=== PATIENT | male | born 1960 | race Caucasian/White ===

== ENCOUNTER → 2017-08-10 | Outpatient (CLI) | payer BC ==
[~2017-08-10] MED LIST: ASPEC325 PO; CLB200 PO; LEVO125T72 PO; OXYC-609 PO; OXYSR10 PO
[2017-08-10 13:19] LABS: BASO % 0.2 %; BASO ABS # 0.02 K/uL (0-0.2); EOS % 0.7 %; EOS ABS # 0.09 K/uL (0-0.5); HEMOGLOBIN 16.6 g/dL (14.0-18.0); IG# 0.03 K/uL (0.00-0.02); LYMPH % 18.2 %; LYMPH ABS # 2.21 K/uL (1.2-3.4); MEAN CELL VOLUME 88.6 fL (80-100); MEAN CORPUSCULAR HEMOGLOBIN 30.6 pg (25-34); MEAN CORPUSCULAR HGB CONC 34.6 g/dl (32-36); MEAN PLATELET VOLUME 9.2 fL (7.4-10.4); MONO % 8.2 %; NEUT % 72.5 %; NEUT ABS # 8.82 K/uL (1.4-6.5); PLATELET COUNT 398 K/uL (130-400); RED CELL DISTRIBUTION WIDTH CV 12.9 % (11.5-14.5); RED CELL DISTRIBUTION WIDTH SD 41.8 fL (36.4-46.3); WHITE BLOOD COUNT 12.17 K/uL (4.8-10.8)
[2017-08-10 13:50] LABS: ALBUMIN 3.8 gm/dl (3.4-5.0); ALT/SGPT 38 U/L (12-78); BLOOD UREA NITROGEN 17 mg/dl (7-18); CALCIUM 9.3 mg/dl (8.5-10.1); CARBON DIOXIDE 27 mmol/L (21-32); CHOLESTEROL 208 mg/dl (0-200); CREATININE 0.92 mg/dl (0.60-1.40); GLUCOSE 96 mg/dl (70-99); POTASSIUM 3.6 mmol/L (3.5-5.1); SODIUM 136 mmol/L (136-145)
[2017-08-10 14:00] LABS: ALKALINE PHOSPHATASE 96 U/L (45-117); AST/SGOT 15 U/L (15-37); LDL CHOLESTEROL CALCULATED 139 mg/dl; TOTAL PROTEIN 7.1 gm/dl (6.4-8.2)
== END | disposition home or self-care (01) ==
LOC: C.LAB1850 12:14
PROVIDERS: ATTEND Nurse Practitioner Family
DX: I10 Essential (primary) hypertension (principal); E89.0 Postprocedural hypothyroidism; E78.5 Hyperlipidemia, unspecified

== ENCOUNTER 2019-05-02 11:13 | Inpatient (IN) ==
[2019-05-02] MEDS ORDERED: ACETAMINOPHEN 1,000 MG/100 ML VIAL IV STA (11:42)
[2019-05-02 11:57] LABS: Basophils # (auto) 0.02 K/uL (0-0.2); Basophils % (auto) 0.2 %; Eosinophils # (auto) 0.14 K/uL (0-0.5); Eosinophils % (auto) 1.2 %; Hematocrit (blood only) 46.3 % (42-52); Hemoglobin 16.3 g/dL (14.0-18.0); Immature Granulocytes # (auto) 0.04 K/uL (0.00-0.02); Immature Granulocytes % (auto) 0.3 %; Lymphocytes # (auto) 1.75 K/uL (1.2-3.4); Lymphocytes % (auto) 14.5 %; Mean Corpuscular Hgb Conc 35.2 g/dL (32-36); Mean Platelet Volume 8.9 fL (7.4-10.4); Monocytes # (auto) 1.04 K/uL (0.11-0.59); Monocytes % (auto) 8.6 %; Neutrophils % (auto) 75.2 %; Platelet Count 343 K/uL (130-400); RDW Standard Deviation 43.3 fL (36.4-46.3); Red Blood Count 5.09 M/uL (4.7-6.1); White Blood Count 12.09 K/uL (4.8-10.8)
[2019-05-02 12:10] LABS: Partial Thromboplastin Time 25.9 Seconds (21.0-31.0); Prothrombin Time 10.1 Seconds (9.0-12.0)
[2019-05-02 12:11] LABS: Blood Urea Nitrogen 15 mg/dl (7-18); Calcium 9.5 mg/dl (8.5-10.1); Carbon Dioxide 26 mmol/L (21-32); Chloride 105 mmol/L (98-107); Creatinine Clr Calc Pharmacy 108.9 ml/min; Est GFR (African American) 105.8; Est GFR (Non-African American) 91.3; Glucose 94 mg/dl (70-99); Magnesium 2.1 mg/dl (1.8-2.4); Potassium 3.9 mmol/L (3.5-5.1); Sodium 137 mmol/L (136-145)
[2019-05-02 12:16] LABS: Alanine Aminotransferase 37 U/L (12-78); Albumin Globulin Ratio 1.2 (0.9-2); Alkaline Phosphatase 101 U/L (45-117); Aspartate Aminotransferase 21 U/L (15-37); Bilirubin,Total 0.5 mg/dl (0.2-1); Globulin 3.5 gm/dl (2.5-4.0); Total Protein 7.5 gm/dl (6.4-8.2); Troponin I < 0.015 ng/ml (0-0.045)
[2019-05-02] MEDS ORDERED: OPTIRAY 320 125ml IV PRN (12:33)
--- NOTE | 2019-05-02 12:38 | CT Scan Report ---
CT angio head wo/w CT DOSE: CLINICAL HISTORY: stroke symptoms , blurred vision. TECHNIQUE: Unenhanced images were acquired through the brain. CT angiography was then performed in a dynamic helical fashion during intravenous administration of 1 year 19 cc of Optiray 320. MIP images were acquired. A dose lowering technique was utilized adhering to the principles of ALARA. COMPARISON STUDY: None. FINDINGS: The noncontrast head CT reveals no intra or extra-axial mass lesions. There is no CT evidence of acut e cortical infarction. There is no midline shift. There is no acute hemorrhage. There is no hydroceph alus. Postcontrast images reveal no pathologically enhancing masses. CT angiographic images reveal no evidence of major intracranial branch occlusion. No aneurysms are vi sualized. The dural venous sinuses appear patent. IMPRESSION: Unremarkable CT angiography of the brain. Electronically signed by: Tee Preston M.D. 05/02/2019 12:37 PM
--- NOTE | 2019-05-02 12:39 | CT Scan Report ---
CT angio neck with con CLINICAL HISTORY: 58 years-old Male with stroke symptoms. Acute strokelike symptoms COMPARISON STUDY: CTA had of same day TECHNIQUE: Following the IV administration of 119 mL of Optiray 320, CT angiogram of the neck was per formed from the aortic arch to the skull base. Images are reviewed in the axial, sagittal, and cortes l planes. 3-D MIPS images are created and assessed. IV contrast was administered without complication . All measurements were calculated based on NASCET criteria. A dose lowering technique was utilized adhering to the principles of ALARA. CT DOSE: 1111.39 mGy.cm FINDINGS: Three-vessel morphology of the aortic arch. There is patency of the imaged bilateral subclavian arter ies. The bilateral common carotid arteries are widely patent. The study is mildly motion degraded. Mo derate mixed plaque of the bilateral carotid bulbs results in less than 50% luminal narrowing bilater ally. The imaged bilateral internal carotid arteries appear to be patent. Dominant right vertebral ar edel. Calcified plaque at the origin of the right vertebral artery results in less than 50% luminal n arrowing. Mixed plaque at the origin of the left vertebral artery causes approximately 50% stenosis. Diminutive basilar artery with suggestion of origin of the bilateral posterior cerebral arterie s. There is no aneurysm, dissection, high-grade stenosis or proximal branch occlusion identified. The lung apices appear to be clear. No pneumothorax or adenopathy. Nonspecific prominent submandibular l ymph nodes measure up to 8 mm on the left. Mildly prominent left supraclavicular lymph nodes measure up to 8 mm. Degenerative changes of the spine. IMPRESSION: 1. No aneurysm, dissection, high-grade stenosis or proximal branch occlusion. 2. Moderate mixed plaque of the bilateral carotid bulbs results in less than 50% stenosis bilaterally . 3. Nonspecific mildly prominent left submandibular and supraclavicular lymph nodes. The above report was generated using voice recognition software. It may contain grammatical, syntax o r spelling errors. Electronically signed by: Nico Kramer M.D. 05/02/2019 12:38 PM
[2019-05-02] MEDS ORDERED: ASPIRIN CHEW 324 MG PO STA (13:08)
--- NOTE | 2019-05-02 14:56 | History & Physical Report ---
Date of Service May 02, 2019 Assessment & Plan (1) Vision disturbance: Sexual male with hypertension and hyperlipidemia presenting with visual disturbance, photopsia in the right eye; specifically blurry vision, flashing lights and floaters. He reports a similar episode of visual disturbance approximately 1 year ago. Patient displays no other neurological deficits. CTA of the head and neck with no aneurysm, dissection or high-grade stenosis. Mixed plaque of the bilateral carotid bulbs resulting in less than 50% stenosis. Differential to include, not limited to ocular migraine, macular degeneration, vertebrobasilar insufficiency, retinal detachment or vitreous detachment. -Admit to medical floor with telemetry monitoring -We will obtain MRI of the brain to further assess for possible stroke -Echocardiogram -Check hemoglobin A1c and lipid panel in a.m. -Will hold Norvasc for now to allow for permissive hypertension -Initiate aspirin 81 mg p.o. daily and Lipitor 20 mg p.o. daily. If problem proves to be a primary Ophtho issue would discontinue these medications. -Neurology consultation per protocol. Assistance appreciated. -Ophthalmology consultation. Assistance appreciated Present on Admission?: Yes (2) Headache: Patient with very dull headache at this time. -Tylenol as needed Present on Admission?: Yes (3) Benign essential hypertension: Blood pressure mildly elevated 151/92. We will hold amlodipine for now to allow for permissive hypertension. Continue to monitor Present on Admission?: Yes (4) Hyperlipidemia: Presently not on any medication for cholesterol -Check lipid panel -Initiate Lipitor 20 mg p.o. daily Present on Admission?: Yes (5) Rosacea: Chronic. Stable. Continue doxycycline at home dose Present on Admission?: Yes (6) Leukocytosis: Patient with mild neutrophil predominant leukocytosis with WBC = 12.09. He had an elevated WBC count in July 2017 as well at 12.17. Incidental discovery of nonspecific prominent submandibular lymph nodes measuring up to 8 mm on the left as well as mildly prominent left supraclavicular lymph node measuring up to 8 mm. Patient denies fevers/chills/weight loss/sweats. Repeat CBC in a.m. -Consider peripheral blood smear -Outpatient follow-up FENHep-Lock. Electrolytes within normal limits. Heart healthy diet as tolerated Prophylaxispatient low risk for DVT. Prophylaxis not indicated Codefull per discussion with patient Dispositionadmit to medical floor telemetry monitoring History of Present Illness Chief Complaint: Visual disturbance Primary Care Provider: José Miguel Mclean III, ROCIO Richard Hyde is a pleasant 58-year-old male with history of hypertension, hyperlipidemia and prior thyroid cancer presenting with right eye visual disturbance. Patient reports approximately 1 year ago while [place] he experienced flashing lights in his right eye which lasted approximately 3 minutes. No neurologic deficits or headache at that time. Patient had a recurrence of the visual disturbance last week while at work when he developed flashing lights in his right eye, blurry vision, "wobbly vision" provoked with looking far right or far left and floaters. He reports that the flashing light was present even while closing his eyes. During this time he st ates that he felt "strange" and "foggy" like he just woke up. This episode lasted longer than the one a year ago and was followed by a dull headache. This morning when the patient woke up he had a dull headache and feeling of pressure in his head. He reports the same flashing light in his right eye, "wobbly" vision provoked with far rightward or leftward gaze and floaters. He denies loss of vision or amaurosis fugax. Denies focal numbness/tingling/weakness. Denies clumsiness of his hands or gait disturbance. Denies difficulty with chewing/swallowing or speaking. Denies pain in the eyes or pain with eye movement but reports that the back of his eyes feel tired. Denies changes in bowels or bladder specifically denies urinary retention, denies back pain or shooting pains. He does not frequently have headaches and has no personal history of migraine. Reports that his vision is overall intact but feels that he may need reading glasses at some point in the near future. Patient additionally denies fever/chills/weight loss/weight gain. Denies hearing loss/tinnitus/vertigo. Denies painful swallowing or difficulty swallowing/abdominal pain/nausea/vomiting/diarrhea/constipation. Denies chest pain/palpitations/shortness of breath/cough/wheeze. No additional complaints at this time. ER course: Aspirin 324 mg p.o. Allergies Allergy/AdvReac Type Severity Reaction Status Date / Time No Known Allergies Allergy Unverified 05/02/19 13:18 Home Medications Home Medications Medication Instructions Recorded Confirmed Type doxycycline hyclate 50 mg capsule 50 mg PO BID #180 cap 04/19/19 05/02/19 Rx amlodipine 5 mg PO QAM 05/02/19 05/02/19 History levothyroxine [Synthroid] 200 mcg PO QAM 05/02/19 05/02/19 History Past Med/Surg History Medical History Dyslipidemia Hypertension Rosacea Thyroid cancer Surgical History History of thyroidectomy History of tonsillectomy History of knee joint replacement Family History Father Cancer Smoker Social History Preferred Language: Setswana Communication Ability: Effective Installation Helper Required: No Beliefs That Will Affect Care: None Current Living Situation: Spouse current occupational status: employed Other Information That Helps Us Care for You: No Feels Safe at Home: Yes Safety Concerns: Feels Safe At This Time Smoking Status: Never smoker Hx Alcohol Use: Yes Alcohol type: beer Alcohol Intake Frequency: Weekly Alcohol Intake Frequency Comment: 4/week Hx Substance Use: No Dental Care, Regularly: Yes Seatbelt Use: sometimes Do you think of yourself as: straight/heterosexual Review of Systems Review of Systems: All systems reviewed & are unremarkable except as noted in HPI & below Physical Exam Physical Exam: General: patient resting comfortably, NAD, non-toxic in appearance, AA&O x 4 Skin: warm, dry, intact, no rashes or lesions HEENT: NC/AT, PERRL, EOMI, anicteric sclera, conjunctiva without injection, external ear normal to inspection and nontender, nares patent, moist mucus membranes, dentition intact, no oropharyngeal lesions, neck supple, trachea midline, no LAD, no thyromegaly, no JVD Heart: +S1/S2, regular, no m/r/g Lungs: equal air entry bilaterally, no rales/rhonchi/wheezes Abd: +BS, soft, NT/ND, no masses/organomegaly/ascites Ext: warm, 2+ pulses in UE/LE bilaterally, no clubbing/cyanosis or edema Neuro: Patient awake alert and oriented x4, speech fluent and appropriate, no facial droop, cranial nerves II through XII grossly intact. Evoked flashing light in the right peripheral visual field with far rightward gaze. No nystagmus. Sensation to light touch intact. Muscle strength 5 out of 5 in upper and lower extremities bilaterally. Coordination by [id number] and [id number] intact bilaterally. Gait normal. Results & Data Vital Signs (Past 12 Hours) Vital Signs Temp Pulse Pulse Resp BP BP Pulse Ox 05/02/19 12:01 63 13 97 05/02/19 12:00 68 16 130/88 97 05/02/19 11:42 71 77 16 144/94 H 144/94 H 97 05/02/19 11:40 74 18 05/02/19 11:23 36.5 C 82 20 124/75 98 Laboratory Results Lab Results 05/02/19 05/02/19 05/02/19 Range/Units 11:36 11:38 11:38 WBC 12.09 H (4.8-10.8) K/uL RBC 5.09 (4.7-6.1) M/uL Hgb 16.3 (14.0-18.0) g/dL Hct 46.3 (42-52) % MCV 91.0 (80-100) fL MCH 32.0 (25-34) pg MCHC 35.2 (32-36) g/dL RDW Std Deviation 43.3 (36.4-46.3) fL RDW Coeff of Bang 13.0 (11.5-14.5) % Plt Count 343 (130-400) K/uL MPV 8.9 (7.4-10.4) fL Immature Gran % (Auto) 0.3 % Neut % (Auto) 75.2 % Lymph % (Auto) 14.5 % [place] % (Auto) 8.6 % Eos % (Auto) 1.2 % Baso % (Auto) 0.2 % Immature Gran # (Auto) 0.04 H (0.00-0.02) K/uL Neut # (Auto) 9.10 H (1.4-6.5) K/uL Lymph # (Auto) 1.75 (1.2-3.4) K/uL [place] # (Auto) 1.04 H (0.11-0.59) K/uL Eos # (Auto) 0.14 (0-0.5) K/uL Baso # (Auto) 0.02 (0-0.2) K/uL PT 10.1 (9.0-12.0) Seconds INR 1.0 (0.9-1.1) APTT 25.9 (21.0-31.0) Seconds PTT Ratio 1.0 Sodium (136-145) mmol/L Potassium (3.5-5.1) mmol/L Chloride (98-107) mmol/L Carbon Dioxide (21-32) mmol/L Anion Gap (3-11) BUN (7-18) mg/dl Creatinine (0.6-1.4) mg/dl Est Cr Clr Drug Dosing ml/min Est GFR ( Amer) Est GFR (Non-Af Amer) BUN/Creatinine Ratio (10-20) Glucose (70-99) mg/dl POC Glucose 89 (70-99) Calcium (8.5-10.1) mg/dl Magnesium (1.8-2.4) mg/dl Total Bilirubin (0.2-1) mg/dl AST (15-37) U/L ALT (12-78) U/L Alkaline Phosphatase (45-117) U/L Troponin I (0-0.045) ng/ml Total Protein (6.4-8.2) gm/dl Albumin (3.4-5.0) gm/dl Globulin (2.5-4.0) gm/dl Albumin/Globulin Ratio (0.9-2) 05/02/19 Range/Units 11:38 WBC (4.8-10.8) K/uL RBC (4.7-6.1) M/uL Hgb (14.0-18.0) g/dL Hct (42-52) % MCV (80-100) fL MCH (25-34) pg MCHC (32-36) g/dL RDW Std Deviation (36.4-46.3) fL RDW Coeff of Bang (11.5-14.5) % Plt Count (130-400) K/uL MPV (7.4-10.4) fL Immature Gran % (Auto) % Neut % (Auto) % Lymph % (Auto) % [place] % (Auto) % Eos % (Auto) % Baso % (Auto) % Immature Gran # (Auto) (0.00-0.02) K/uL Neut # (Auto) (1.4-6.5) K/uL Lymph # (Auto) (1.2-3.4) K/uL [place] # (Auto) (0.11-0.59) K/uL Eos # (Auto) (0-0.5) K/uL Baso # (Auto) (0-0.2) K/uL PT (9.0-12.0) Seconds INR (0.9-1.1) APTT (21.0-31.0) Seconds PTT Ratio Sodium 137 (136-145) mmol/L Potassium 3.9 (3.5-5.1) mmol/L Chloride 105 (98-107) mmol/L Carbon Dioxide 26 (21-32) mmol/L Anion Gap 6.0 (3-11) BUN 15 (7-18) mg/dl Creatinine 0.91 (0.6-1.4) mg/dl Est Cr Clr Drug Dosing 108.9 ml/min Est GFR ( Amer) 105.8 Est GFR (Non-Af Amer) 91.3 BUN/Creatinine Ratio 17.0 (10-20) Glucose 94 (70-99) mg/dl POC Glucose (70-99) Calcium 9.5 (8.5-10.1) mg/dl Magnesium 2.1 (1.8-2.4) mg/dl Total Bilirubin 0.5 (0.2-1) mg/dl AST 21 (15-37) U/L ALT 37 (12-78) U/L Alkaline Phosphatase 101 (45-117) U/L Troponin I < 0.015 (0-0.045) ng/ml Total Protein 7.5 (6.4-8.2) gm/dl Albumin 4.0 (3.4-5.0) gm/dl Globulin 3.5 (2.5-4.0) gm/dl Albumin/Globulin Ratio 1.2 (0.9-2) Diagnostic Findings CT angio neck with con CLINICAL HISTORY: 58 years-old Male with stroke symptoms. Acute strokelike symptoms COMPARISON STUDY: CTA had of same day TECHNIQUE: Following the IV administration of 119 mL of Optiray 320, CT angiogram of the neck was performed from the aortic arch to the skull base. Images are reviewed in the axial, sagittal, and coronal planes. 3-D MIPS images are created and assessed. IV contrast was administered without complication. All measurements were calculated based on NASCET criteria. A dose lowering technique was utilized adhering to the principles of ALARA. CT DOSE: 1111.39 mGy.cm FINDINGS: Three-vessel morphology of the aortic arch. There is patency of the imaged bilateral subclavian arteries. The bilateral common carotid arteries are widely patent. The study is mildly motion degraded. Moderate mixed plaque of the bilateral carotid bulbs results in less than 50% luminal narrowing bilaterally. The imaged bilateral internal carotid arteries appear to be patent. Dominant right vertebral artery. Calcified plaque at the origin of the right vertebral artery results in less than 50% luminal narrowing. Mixed plaque at the origin of the left vertebral artery causes approximately 50% stenosis. Diminutive basilar artery with suggestion of origin of the bilateral posterior cerebral arteries. There is no aneurysm, dissection, high-grade stenosis or proximal branch occlusion identified. The lung apices appear to be clear. No pneumothorax or adenopathy. Nonspecific prominent submandibular lymph nodes measure up to 8 mm on the left. Mildly prominent left supraclavicular lymph nodes measure up to 8 mm. Degenerative changes of the spine. IMPRESSION: 1. No aneurysm, dissection, high-grade stenosis or proximal branch occlusion. 2. Moderate mixed plaque of the bilateral carotid bulbs results in less than 50% stenosis bilaterally. 3. Nonspecific mildly prominent left submandibular and supraclavicular lymph nodes. The above report was generated using voice recognition software. It may contain grammatical, syntax or spelling errors. Electronically signed by: Nico Kramer M.D. 05/02/2019 12:38 PM Dictated: 05/02/19 1234 Transcribed: 05/02/[address] angio head wo/w CT DOSE: CLINICAL HISTORY: stroke symptoms , blurred vision. TECHNIQUE: Unenhanced images were acquired through the brain. CT angiography was then performed in a dynamic helical fashion during intravenous administration of 1 year 19 cc of Optiray 320. MIP images were acquired. A dose lowering technique was utilized adhering to the principles of ALARA. COMPARISON STUDY: None. FINDINGS: The noncontrast head CT reveals no intra or extra-axial mass lesions. There is no CT evidence of acute cortical infarction. There is no midline shift. There is no acute hemorrhage. There is no hydrocephalus. Postcontrast images reveal no pathologically enhancing masses. CT angiographic images reveal no evidence of major intracranial branch occlusion. No aneurysms are visualized. The dural venous sinuses appear patent. IMPRESSION: Unremarkable CT angiography of the brain. Electronically signed by: Tee Preston M.D. 05/02/2019 12:37 PM Dictated: 05/02/19 1232 Transcribed: 05/02/19 1236 ECG Additional Comments: Normal study. No acute ischemic change Code Status & VTE Plan Code Status Full code VTE Prophylaxis Plan VTE Prophylaxis will be ordered: No Reason for no VTE drug order: Treatment not indicated Reason for no VTE mechanical prophylaxis: Treatment not indicated PG Care Time/CCT Total # of Minutes Spent Total Time Spent with Patient: Total time spent is greater than 50% in coordination of care (as documented) at patient's floor/unit and/or counseling patient: (1) Headache Headache chronicity pattern: unspecified pattern Headache type: unspecified Intractability: not intractable Qualified Code(s): R51 - Headache (2) Hyperlipidemia Hyperlipidemia type: unspecified Qualified Code(s): E78.5 - Hyperlipidemia, unspecified (3) Leukocytosis Leukocytosis type: unspecified Qualified Code(s): D72.829 - Elevated white blood cell count, unspecified
[2019-05-02] MEDS ORDERED: ACETAMINOPHEN 325 MG TAB PO PRN (15:40)
--- NOTE | 2019-05-02 16:42 | Neurology Consultation ---
Date of Consultation May 02, 2019 Assessment & Plan (1) Flashing lights: Richard Angel is a 58-year-old man with past medical history of hypertension, hyperlipidemia, rosacea and history of thyroid cancer status post resection who presents to [facility] after onset of right eye blurry vision and flashes of light associated with a dull headache. #Flashing lights with associated blurry vision and headache: Differential is concerning for possible retinal detachment versus tear, temporal arteritis, less likely migraine with visual aura as his headache history is not consistent with migraine nor is his current headache consistent with migraine. Positive symptoms with flashing lights if no other underlying retinal or optic nerve pathology could also be consistent with occipital lobe seizures. History does not sound consistent with a CRAO or BRAO. - MRI brain pending to rule out any occipital lobe stroke or compressive of lesion on the right optic nerve - needs urgent ophtho evaluation to rule out retinal detachment or tear as this requires urgent treatment - please send ESR/CRP to rule out temporal arteritis We will continue to follow patient closely. Please call with any questions. (2) Vision disturbance: (3) Headache: History of Present Illness Attending Physician: Lauren Ferreira DO Richard Angel is a 58-year-old man with past medical history of hypertension, hyperlipidemia, rosacea and history of thyroid cancer status post resection who presents to [facility] after onset of right eye blurry vision and flashes of light associated with a dull headache. He reports that he had similar symptoms one time last year while he was hunting. He reports acute onset of flashes and floaters predominantly in the right side of his vision. These resolved after several minutes and had no other associated symptoms of numbness, tingling, weakness that he was aware of. Last Wednesday, he reports again having several minutes of right-sided flashes in his vision associated with a brief. Of darkness like a curtain had pulled over the right upper portion of his vision. He did have a dull headache in his roman catholic and retro-orbital regions with no associated nausea, vomiting, photophobia or phonophobia that he noted. This resolved and he was in his normal state of health until yesterday when he started to feel a bit lethargic over the course of the day. He then also noticed the spots in his vision in the same curtain in the right upper outer portion of his visual field that seemed to last for a little bit longer but did resolve. After noticing the same symptoms of blurry vision, flashes of light and dull headache this morning, he presented to the emergency department. In the ED, he was found to be hypertensive with blood pressure 153/89. He was afebrile and the remainder of his vitals are unremarkable. His labs are notable for leukocytosis with a neutrophilic predominance. A1c and lipid panel are pending. He had a CTA of the head and neck that showed mild stenosis of bilateral internal carotid arteries with no high-grade stenosis, aneurysm or large vessel occlusion noted. MRI brain is pending. Ophthalmological evaluation is also pending. His stroke scale on examination was 0. He reports that the headache is 2 out of 10 in severity, dull in character with no associated symptoms. He gets rare headaches that are similar in character couple times a year but never previously had any visual symptoms with his previous headaches. He does note some tenderness along his temples but denies jaw claudication or symptoms of PMR. Allergies Allergy/AdvReac Type Severity Reaction Status Date / Time No Known Allergies Allergy Unverified 05/02/19 13:18 Home Medications Home Medications Medication Instructions Recorded Confirmed Type doxycycline hyclate 50 mg capsule 50 mg PO BID #180 cap 04/19/19 05/02/19 Rx amlodipine 5 mg PO QAM 05/02/19 05/02/19 History levothyroxine [Synthroid] 200 mcg PO QAM 05/02/19 05/02/19 History Patient History Medical History Dyslipidemia Hypertension Rosacea Thyroid cancer Surgical History History of thyroidectomy History of tonsillectomy History of knee joint replacement Family History Father Cancer Smoker Social History Preferred Language: Hungarian Communication Ability: Effective Flag Signalman Required: No Beliefs That Will Affect Care: None Current Living Situation: Spouse current occupational status: employed Feels Safe at Home: Yes Smoking Status: Never smoker Hx Alcohol Use: Yes Alcohol type: beer Alcohol Intake Frequency: Weekly Alcohol Intake Frequency Comment: 4/week Hx Substance Use: No Dental Care, Regularly: Yes Seatbelt Use: sometimes Do you think of yourself as: straight/heterosexual Review of Systems Review of Systems: 14 point review of systems completed and negative except as in HPI. Physical Exam Physical Exam: General Exam: GEN: NAD, sitting in bed. HEENT: No conjunctival injection, no rhinorrhea. CV: RRR, no peripheral edema PULM: Nonlabored respirations on room air. Neuro Exam: MS: Awake and Alert. Oriented to person, place, and date. Speech fluent and appropriate without dysarthria or paraphasic errors. Language intact including naming, comprehension, repetition. Cognition and memory grossly intact. Attention intact. No neglect. CN: Visual stoner full. No extinction to double simultaneous stimuli. No optic disc edema on fundoscopic exam in the left eye, no clear optic disc edema in the right eye. PERRLA OU, no RAPD noted. EOMI without nystagmus. Facial sensation intact to LT. Facial muscles full and symmetric. Hearing intact to conversation. Uvula midline with symmetric palatal elevation. Shoulder shrug normal. Tongue midline. MOTOR: Normal bulk and tone. No pronator drift. BUE strength 5/5 at deltoids, biceps, triceps, wrist flexors and extensors, and finger flexors bilaterally. BLE strength 5/5 at iliopsoas, hamstrings, quadriceps, tibialis anterior, and gastrocnemius bilaterally. REFLEXES: 2+ at biceps, triceps, brachioradialis, patella and Achilles bilaterally. Flexor plantar responses bilaterally. SENSORY: Intact to LT without extinction to double simultaneous stimuli. Vibration and pinprick intact throughout. COORDINATION: No dysmetria or ataxia on [id number] and [id number] bilaterally. Normal Meaghan bilaterally. GAIT: Normal gait and arm swing. Normal Romberg. NIHSS 0 Results & Data Vital Signs (Past 12 Hours) Vital Signs Temp Pulse Pulse Resp BP BP Pulse Ox 05/02/19 15:05 67 20 153/89 H 99 05/02/19 15:00 84 21 05/02/19 14:30 71 17 05/02/19 14:00 76 19 05/02/19 13:30 72 25 H 05/02/19 13:14 68 17 151/92 H 05/02/19 12:01 63 13 97 05/02/19 12:00 68 16 130/88 97 05/02/19 11:42 71 77 16 144/94 H 144/94 H 97 05/02/19 11:40 74 18 05/02/19 11:23 36.5 C 82 20 124/75 98 Laboratory Results Laboratory Results - last 24 hr 05/02/19 05/02/19 05/02/19 11:36 11:38 11:38 WBC 12.09 H RBC 5.09 Hgb 16.3 Hct 46.3 MCV 91.0 MCH 32.0 MCHC 35.2 RDW Std Deviation 43.3 RDW Coeff of Bang 13.0 Plt Count 343 MPV 8.9 Immature Gran % (Auto) 0.3 Neut % (Auto) 75.2 Lymph % (Auto) 14.5 [place] % (Auto) 8.6 Eos % (Auto) 1.2 Baso % (Auto) 0.2 Immature Gran # (Auto) 0.04 H Neut # (Auto) 9.10 H Lymph # (Auto) 1.75 [place] # (Auto) 1.04 H Eos # (Auto) 0.14 Baso # (Auto) 0.02 PT 10.1 INR 1.0 APTT 25.9 PTT Ratio 1.0 Sodium Potassium Chloride Carbon Dioxide Anion Gap BUN Creatinine Est Cr Clr Drug Dosing Est GFR ( Amer) Est GFR (Non-Af Amer) BUN/Creatinine Ratio Glucose POC Glucose 89 Estimat Average Glucose Hemoglobin A1c Calcium Magnesium Total Bilirubin AST ALT Alkaline Phosphatase Troponin I Total Protein Albumin Globulin Albumin/Globulin Ratio 05/02/19 05/02/19 11:38 11:38 WBC RBC Hgb Hct MCV MCH MCHC RDW Std Deviation RDW Coeff of Bang Plt Count MPV Immature Gran % (Auto) Neut % (Auto) Lymph % (Auto) [place] % (Auto) Eos % (Auto) Baso % (Auto) Immature Gran # (Auto) Neut # (Auto) Lymph # (Auto) [place] # (Auto) Eos # (Auto) Baso # (Auto) PT INR APTT PTT Ratio Sodium 137 Potassium 3.9 Chloride 105 Carbon Dioxide 26 Anion Gap 6.0 BUN 15 Creatinine 0.91 Est Cr Clr Drug Dosing 108.9 Est GFR ( Amer) 105.8 Est GFR (Non-Af Amer) 91.3 BUN/Creatinine Ratio 17.0 Glucose 94 POC Glucose Estimat Average Glucose Pending Hemoglobin A1c Pending Calcium 9.5 Magnesium 2.1 Total Bilirubin 0.5 AST 21 ALT 37 Alkaline Phosphatase 101 Troponin I < 0.015 Total Protein 7.5 Albumin 4.0 Globulin 3.5 Albumin/Globulin Ratio 1.2 Diagnostic Findings CTA head and neck: FINDINGS: Three-vessel morphology of the aortic arch. There is patency of the imaged bilateral subclavian arteries. The bilateral common carotid arteries are widely patent. The study is mildly motion degraded. Moderate mixed plaque of the bilateral carotid bulbs results in less than 50% luminal narrowing bilaterally. The imaged bilateral internal carotid arteries appear to be patent. Dominant right vertebral artery. Calcified plaque at the origin of the right vertebral artery results in less than 50% luminal narrowing. Mixed plaque at the origin of the left vertebral artery causes approximately 50% stenosis. Diminutive basilar artery with suggestion of origin of the bilateral posterior cerebral arteries. There is no aneurysm, dissection, high-grade stenosis or proximal branch occlusion identified. The lung apices appear to be clear. No pneumothorax or adenopathy. Nonspecific prominent submandibular lymph nodes measure up to 8 mm on the left. Mildly prominent left supraclavicular lymph nodes measure up to 8 mm. Degenerative changes of the spine. IMPRESSION: 1. No aneurysm, dissection, high-grade stenosis or proximal branch occlusion. 2. Moderate mixed plaque of the bilateral carotid bulbs results in less than 50% stenosis bilaterally. 3. Nonspecific mildly prominent left submandibular and supraclavicular lymph nodes. PG Care Time/CCT Total # of Minutes Spent Total Time Spent with Patient: Total time spent is greater than 50% in coordination of care (as documented) at patient's floor/unit and/or counseling patient: (1) Headache Headache chronicity pattern: unspecified pattern Headache type: unspecified Intractability: not intractable Qualified Code(s): R51 - Headache
--- NOTE | 2019-05-02 18:15 | Emergency Department Note ---
Entered by Bill Harris acting as a scribe for Tanner Saha MD History of Present Illness General Chief complaint: Stroke/CVA Symptoms Stated complaint: BLURRY RT, SLIGHT HEADACHE Time Seen by Provider: 05/02/19 11:34 Source: patient History of Present Illness Provider complaint: vision changes Onset (ago): week(s) 1 Location: eyes and right Radiation: non-radiation Pain Consistency: + intermittent Maximum Pain Intensity: 2 Quality: + other (flahses of light) Associated symptoms: + denies other symptoms The patient is a 58 y/o male who presents to the emergency department for evaluation of intermittent vision changes that began last week. The patient states that he had an episode of right sided foggy vision with white flashes that resolved after 5 minutes. He reports that last evening the same symptoms reoccurred but did not fully resolve so he went to sleep earlier than normal. The patient states that he came to the ED because the vision changes began to become black flashes and fogginess. He reports that he has a slight headache. The patient reports that he had an episode like this a year ago as well. He notes that he has felt mentally at baseline recently. The patient denies speech changes, migraine history and any other symptoms. Home Medications Home Medications Medication Instructions Recorded Confirmed Type doxycycline hyclate 50 mg capsule 50 mg PO BID #180 cap 04/19/19 05/02/19 Rx amlodipine 5 mg PO QAM 05/02/19 05/02/19 History levothyroxine [Synthroid] 200 mcg PO QAM 05/02/19 05/02/19 History Allergies Allergy/AdvReac Type Severity Reaction Status Date / Time No Known Allergies Allergy Unverified 05/02/19 13:18 Past Med/Surg History Medical History Dyslipidemia Hypertension Rosacea Thyroid cancer Surgical History History of thyroidectomy History of tonsillectomy History of knee joint replacement Family History Father Cancer Smoker Social History Preferred Language: Rw[place]an Communication Ability: Effective Regulatory Affairs Manager Required: No Beliefs That Will Affect Care: None Current Living Situation: Spouse current occupational status: employed Feels Safe at Home: Yes Smoking Status: Never smoker Hx Alcohol Use: Yes Alcohol type: beer Alcohol Intake Frequency: Weekly Alcohol Intake Frequency Comment: 4/week Hx Substance Use: No Dental Care, Regularly: Yes Seatbelt Use: sometimes Do you think of yourself as: straight/heterosexual Review of Systems See HPI for pertinent positives & negatives. and A total of 10 systems reviewed and were otherwise negative Physical Exam Vital Signs Vital Signs - 24 hr 05/02/19 14:00 Pulse Rate 76 Respiratory Rate 19 GENERAL: Patient is in no acute distress. HEENT: No acute trauma, normocephalic atraumatic, mucous membranes moist, no nasal congestion, no scleral icterus. NECK: No stridor, no adenopathy, no meningismus, trachea is midline. LUNGS: Clear to auscultation bilaterally, no wheeze, no rhonchi, breath sounds equal. HEART: Without murmurs gallops or rubs, regular rate and rhythm. ABDOMEN: Soft, nontender, bowel sounds positive, no hernias, no peritonitis. EXTREMITIES: No cyanosis or edema, full range of motion of all the joints without pain or difficulty, no signs for acute trauma. NEUROLOGIC: Oriented x 3, no acute motor or sensory deficits, no focal weakness. No speech slur or cerebellar dysfunction, no extremity drift. SKIN: No rash, no jaundice, no diaphoresis. Course 1135: Past medical records reviewed. The patient was evaluated in room C12. A complete history and physical exam was performed. 1300: I spoke with Dr. Juliana Lombardi [facility] [place]. She believes the patient should come in for a stroke work up. 1305: I discussed the findings with the patient and his . They agreed with admission. 1340: I spoke with Olesya Ferreira [facility] [place]. She will evaluate for further management. Administered Medications Aspirin (Ecotrin Ectab) 81 mg PO [facility] Stop: 06/02/19 08:59 Last Admin: 05/03/19 07:59 Dose: 81 mg Documented by: [id number] Atorvastatin Calcium (Lipitor) 20 mg PO [facility] Stop: 06/02/19 08:59 Last Admin: 05/03/19 07:59 Dose: 20 mg Documented by: [id number] Doxycycline Hyclate (Vibramycin) 50 mg PO BID [facility] Stop: 05/12/19 20:59 Last Admin: 05/03/19 07:59 Dose: 50 mg Documented by: [id number] Admin: 05/02/19 20:39 Dose: Not Given Documented by: [id number] Gadobutrol (Gadavist 65ml) 10 ml IV ONCE PRN PRN Reason: Interaction Checking Stop: 05/06/19 19:49 Last Admin: 05/02/19 19:50 Dose: 10 ml Documented by: [id number] Ioversol (Optiray 320 125ml) 119 ml IV ONCE PRN PRN Reason: Interaction Checking Stop: 05/06/19 12:32 Last Admin: 05/02/19 12:33 Dose: 119 ml Documented by: [id number] Levothyroxine Sodium (Synthroid) 200 mcg PO DAILYBB [facility] Stop: 06/02/19 06:29 Last Admin: 05/03/19 06:00 Dose: 200 mcg Documented by: [id number] Discontinued Medications Aspirin (Aspirin) 324 mg PO NOW STA Stop: 05/02/19 13:09 Last Admin: 05/02/19 13:18 Dose: 324 mg Documented by: [id number] Acetaminophen (Ofirmev) 1,000 mg in 100 mls @ 400 mls/hr IV NOW STA Stop: 05/02/19 11:56 Last Infusion: 05/02/19 12:05 Dose: 0 mls/hr Documented by: [id number] Admin: 05/02/19 11:50 Dose: 400 mls/hr Documented by: [id number] Medical Decision Making Differential Diagnosis Differential diagnosis: migraine headache, intracranial bleeding, stroke, TIA, electrolyte imbalance, anemia, or infection. Medical Records Attestation: I reviewed the patient's medical records. Home Medications Current Medication List: was personally reviewed by me Laboratory Data Attestation: I reviewed the patient's lab results. Result diagrams: 05/03/19 05:51 05/02/19 11:38 Lab Results 05/02/19 05/02/19 05/02/19 Range/Units 11:36 11:38 11:38 WBC 12.09 H (4.8-10.8) K/uL RBC 5.09 (4.7-6.1) M/uL Hgb 16.3 (14.0-18.0) g/dL Hct 46.3 (42-52) % MCV 91.0 (80-100) fL MCH 32.0 (25-34) pg MCHC 35.2 (32-36) g/dL RDW Std Deviation 43.3 (36.4-46.3) fL RDW Coeff of Bang 13.0 (11.5-14.5) % Plt Count 343 (130-400) K/uL MPV 8.9 (7.4-10.4) fL Immature Gran % (Auto) 0.3 % Neut % (Auto) 75.2 % Lymph % (Auto) 14.5 % Cole % (Auto) 8.6 % Eos % (Auto) 1.2 % Baso % (Auto) 0.2 % Immature Gran # (Auto) 0.04 H (0.00-0.02) K/uL Neut # (Auto) 9.10 H (1.4-6.5) K/uL Lymph # (Auto) 1.75 (1.2-3.4) K/uL Cole # (Auto) 1.04 H (0.11-0.59) K/uL Eos # (Auto) 0.14 (0-0.5) K/uL Baso # (Auto) 0.02 (0-0.2) K/uL ESR (0-14) mm/hr PT 10.1 (9.0-12.0) Seconds INR 1.0 (0.9-1.1) APTT 25.9 (21.0-31.0) Seconds PTT Ratio 1.0 Sodium (136-145) mmol/L Potassium (3.5-5.1) mmol/L Chloride (98-107) mmol/L Carbon Dioxide (21-32) mmol/L Anion Gap (3-11) BUN (7-18) mg/dl Creatinine (0.6-1.4) mg/dl Est Cr Clr Drug Dosing ml/min Est GFR ( Amer) Est GFR (Non-Af Amer) BUN/Creatinine Ratio (10-20) Glucose (70-99) mg/dl POC Glucose 89 (70-99) Estimat Average Glucose mg/dl Hemoglobin A1c (4.5-5.6) % Calcium (8.5-10.1) mg/dl Magnesium (1.8-2.4) mg/dl Total Bilirubin (0.2-1) mg/dl AST (15-37) U/L ALT (12-78) U/L Alkaline Phosphatase (45-117) U/L Troponin I (0-0.045) ng/ml C-Reactive Protein (0-0.29) mg/dl Total Protein (6.4-8.2) gm/dl Albumin (3.4-5.0) gm/dl Globulin (2.5-4.0) gm/dl Albumin/Globulin Ratio (0.9-2) 05/02/19 05/02/19 05/02/19 Range/Units 11:38 11:38 11:38 WBC (4.8-10.8) K/uL RBC (4.7-6.1) M/uL Hgb (14.0-18.0) g/dL Hct (42-52) % MCV (80-100) fL MCH (25-34) pg MCHC (32-36) g/dL RDW Std Deviation (36.4-46.3) fL RDW Coeff of Bang (11.5-14.5) % Plt Count (130-400) K/uL MPV (7.4-10.4) fL Immature Gran % (Auto) % Neut % (Auto) % Lymph % (Auto) % Cole % (Auto) % Eos % (Auto) % Baso % (Auto) % Immature Gran # (Auto) (0.00-0.02) K/uL Neut # (Auto) (1.4-6.5) K/uL Lymph # (Auto) (1.2-3.4) K/uL Cole # (Auto) (0.11-0.59) K/uL Eos # (Auto) (0-0.5) K/uL Baso # (Auto) (0-0.2) K/uL ESR 17 H (0-14) mm/hr PT (9.0-12.0) Seconds INR (0.9-1.1) APTT (21.0-31.0) Seconds PTT Ratio Sodium 137 (136-145) mmol/L Potassium 3.9 (3.5-5.1) mmol/L Chloride 105 (98-107) mmol/L Carbon Dioxide 26 (21-32) mmol/L Anion Gap 6.0 (3-11) BUN 15 (7-18) mg/dl Creatinine 0.91 (0.6-1.4) mg/dl Est Cr Clr Drug Dosing 108.9 ml/min Est GFR ( Amer) 105.8 Est GFR (Non-Af Amer) 91.3 BUN/Creatinine Ratio 17.0 (10-20) Glucose 94 (70-99) mg/dl POC Glucose (70-99) Estimat Average Glucose 123 mg/dl Hemoglobin A1c 5.9 H (4.5-5.6) % Calcium 9.5 (8.5-10.1) mg/dl Magnesium 2.1 (1.8-2.4) mg/dl Total Bilirubin 0.5 (0.2-1) mg/dl AST 21 (15-37) U/L ALT 37 (12-78) U/L Alkaline Phosphatase 101 (45-117) U/L Troponin I < 0.015 (0-0.045) ng/ml C-Reactive Protein < 0.29 (0-0.29) mg/dl Total Protein 7.5 (6.4-8.2) gm/dl Albumin 4.0 (3.4-5.0) gm/dl Globulin 3.5 (2.5-4.0) gm/dl Albumin/Globulin Ratio 1.2 (0.9-2) Imaging Data Radiologist's Impression: Radiology results as stated below per my review and the radiologist's interpretation: CT angio head wo/w CT DOSE: CLINICAL HISTORY: stroke symptoms , blurred vision. TECHNIQUE: Unenhanced images were acquired through the brain. CT angiography was then performed in a dynamic helical fashion during intravenous administration of 1 year 19 cc of Optiray 320. MIP images were acquired. A dose lowering te chnique was utilized adhering to the principles of ALARA. COMPARISON STUDY: None. FINDINGS: The noncontrast head CT reveals no intra or extra-axial mass lesions. There is no CT evidence of acute cortical infarction. There is no midline shift. There is no acute hemorrhage. There is no hydrocephalus. Postcontrast images reveal no pathologically enhancing masses. CT angiographic images reveal no evidence of major intracranial branch occlusion. No aneurysms are visualized. The dural venous sinuses appear patent. IMPRESSION: Unremarkable CT angiography of the brain. Electronically signed by: Tee Preston M.D. 05/02/2019 12:[address] angio neck with con CLINICAL HISTORY: 58 years-old Male with stroke symptoms. Acute strokelike symptoms COMPARISON STUDY: CTA had of same day TECHNIQUE: Following the IV administration of 119 mL of Optiray 320, CT angiogram of the neck was performed from the aortic arch to the skull base. Images are reviewed in the axial, sagittal, and coronal planes. 3-D MIPS images are created and assessed. IV contrast was administered without complication. All measurements were calculated based on NASCET criteria. A dose lowering technique was utilized adhering to the principles of ALARA. CT DOSE: 1111.39 mGy.cm FINDINGS: Three-vessel morphology of the aortic arch. There is patency of the imaged bilateral subclavian arteries. The bilateral common carotid arteries are widely patent. The study is mildly motion degraded. Moderate mixed plaque of the bilateral carotid bulbs results in less than 50% luminal narrowing bilaterally. The imaged bilateral internal carotid arteries appear to be patent. Dominant right vertebral artery. Calcified plaque at the origin of the right vertebral artery results in less than 50% luminal narrowing. Mixed plaque at the origin of the left vertebral artery causes approximately 50% stenosis. Diminutive basilar artery with suggestion of origin of the bilateral posterior cerebral arteries. There is no aneurysm, dissection, high-grade stenosis or proximal branch occlusion identified. The lung apices appear to be clear. No pneumothorax or adenopathy. Nonspecific prominent submandibular lymph nodes measure up to 8 mm on the left. Mildly prominent left supraclavicular lymph nodes measure up to 8 mm. Degenerative changes of the spine. IMPRESSION: 1. No aneurysm, dissection, high-grade stenosis or proximal branch occlusion. 2. Moderate mixed plaque of the bilateral carotid bulbs results in less than 50% stenosis bilaterally. 3. Nonspecific mildly prominent left submandibular and supraclavicular lymph nodes. The above report was generated using voice recognition software. It may contain grammatical, syntax or spelling errors. Electronically signed by: Nico Kramer M.D. 05/02/2019 12:38 PM ECG Data Indication: + other (stroke symptoms) Rate (beats per minute): 65 Rhythm: + normal sinus ECG Intervals/blocks: + Normal QT (QTC= 426) ECG ST segments: no ST elevation ECG Findings: no PACs and no PVCs Blood Pressure Blood Pressure Findings: Elevated blood pressure Blood Pressure Disposition: further management by hospitalist [facility] Narrative There is a mild leukocytosis, this could be consistent with infection or the just the stress of his situation. No worrisome anemia. No coagulopathy. No significant electrolyte abnormality or kidney failure. No evidence for liver enzyme elevation. EKG shows a sinus rhythm, no acute ischemia. CT angio of the brain does not show bleeding or aneurysm or mass. There was no evidence for stroke. CT angio of the neck did show some narrowing, no significant stenosis though. On exam, the patient did not have any focal neurologic findings. The patient received IV Tylenol for pain. He was given oral aspirin. He is currently resting comfortably. The patient presents with a visual disturbance which has been ongoing since last night. He is not a candidate for TPA given the length of time he has had symptoms and given his stroke scale value of 0. TIA/small CVA is a consideration though with his presentation. Migraine was also a possible exhalation for his presentation. I discussed the case with neurology. Hospitalization was felt warranted. I sp abhishek to the patient and welfare case worker. The on-call hospitalist was consulted. Impression & Plan Stroke-like symptom, Vision disturbance, Headache Discharge Plan Visit Data *Final* Discharge Date/Time: 05/02/19 15:03 Chief Complaint: Stroke/CVA Symptoms Stated Complaint: BLURRY RT, SLIGHT HEADACHE ED Provider: Tanner Saha Discharge Problem: Stroke-like symptom, Vision disturbance, Headache Patient Disposition: Admitted As Inpatient Discharge Instructions Interventions: ED Discharge Assessment Last Done: 05/02/19 15:03 Discharge Problem: Headache Qualifiers: Headache type: unspecified Headache chronicity pattern: unspecified pattern Intractability: not intractable Qualified Code(s): R51 - Headache The jamesibe's documentation has been prepared under my direction and personally reviewed by me in its entirety. I confirm that the note above accurately reflec ts all work, treatment, procedures, and medical decision making performed by me.
[2019-05-02] MEDS ORDERED: GADOBUTROL 65ML VIAL IV PRN (19:50)
[2019-05-02] MEDS: DOXYCYCLINE HYCLATE 50 MG CAP PO SCH (20:39)
--- NOTE | 2019-05-02 22:44 | Magnetic Resonance Report ---
MRI OF THE BRAIN COMBO CLINICAL HISTORY: Blurry vision. Headache. COMPARISON STUDY: CT of the brain dated 05/02/2019. TECHNIQUE: MRI of the brain was performed utilizing various T1 and T2-weighted sequences in the axial , sagittal, and coronal planes. Contrast-enhanced sequences were acquired following the administratio n of 10 cc of Gadavist. FINDINGS: Brain parenchyma: There is subtle but significant T2 signal abnormality identified within the right o ccipital cortex, best seen on the coronal FLAIR sequence image #23. There is no hemorrhage or mass ef fect. There is no restricted diffusion to suggest acute ischemia. No enhancing mass lesion is identif ied on the postcontrast images. A developmental venous anomaly is incidentally noted in the right occ ipital lobe. No extra-axial fluid collection is seen. The cerebellar tonsils are normal in configurat ion. Ventricles, sulci, and cisterns: Normal in configuration. Pituitary and sella: Unremarkable. Intracranial vasculature: Normal flow voids are maintained at the skull base. Orbits: The bony orbits are grossly intact. Orbital contents are normal in appearance. Sinuses and mastoids: The paranasal sinuses are clear. There is a trace left mastoid effusion. The ri ght mastoid air cells are well pneumatized. Calvarium: Unremarkable. Cervical cord: Partially visualized cervical spinal cord is normal in morphology and signal intensity . IMPRESSION: 1. There is subtle T2 signal abnormality identified involving the right occipital lobe cortex. This i s nonspecific, and there is no associated abnormal postcontrast enhancement or restricted diffusion. Differential considerations include a nonspecific cerebritis, PRES (given the distribution), or less likely glioma. Clinical correlation will be required. Short-term MRI follow-up is recommended to docu ment resolution. 2. There is no hemorrhage, mass effect, or evidence of acute ischemia. Electronically signed by: Tanner Reeves M.D. 05/02/2019 10:43 PM
[2019-05-03 00:04] LABS: C Reactive Protein < 0.29 mg/dl (0-0.29)
[2019-05-03] MEDS: LEVOTHYROXINE SODIUM 200 MCG TABLET PO SCH (06:00)
[2019-05-03 06:22] LABS: Basophils # (auto) 0.02 K/uL (0-0.2); Basophils % (auto) 0.2 %; Eosinophils # (auto) 0.27 K/uL (0-0.5); Eosinophils % (auto) 2.9 %; Hematocrit (blood only) 45.8 % (42-52); Hemoglobin 15.7 g/dL (14.0-18.0); Immature Granulocytes # (auto) 0.05 K/uL (0.00-0.02); Immature Granulocytes % (auto) 0.5 %; Lymphocytes # (auto) 1.64 K/uL (1.2-3.4); Lymphocytes % (auto) 17.6 %; Mean Corpuscular Hemoglobin 31.5 pg (25-34); Mean Corpuscular Hgb Conc 34.3 g/dL (32-36); Mean Corpuscular Volume 91.8 fL (80-100); Monocytes # (auto) 1.07 K/uL (0.11-0.59); Monocytes % (auto) 11.5 %; Neutrophils # (auto) 6.29 K/uL (1.4-6.5); Neutrophils % (auto) 67.3 %; Platelet Count 312 K/uL (130-400); RDW Standard Deviation 43.5 fL (36.4-46.3); Red Blood Count 4.99 M/uL (4.7-6.1); White Blood Count 9.34 K/uL (4.8-10.8)
[2019-05-03 07:02] LABS: Chol HDL Ratio 5; Cholesterol 187 mg/dl (0-200); HDL Cholesterol 39 mg/dl; LDL Cholesterol Calculated 123 mg/dl; Triglycerides 124 mg/dl (0-150); VLDL Cholesterol 25 mg/dl
[2019-05-03 07:30] LABS: Estimated Average Glucose 123 mg/dl; Hemoglobin A1C 5.9 % (4.5-5.6)
[2019-05-03] MEDS: DOXYCYCLINE HYCLATE 50 MG CAP PO SCH ×2 (07:59→20:28)
[2019-05-03] MEDS ORDERED: ATORVASTATIN 20 MG TAB PO SCH (09:00)
[2019-05-03] MEDS ORDERED: ASPIRIN 81 MG ECTAB PO SCH (09:00)
--- NOTE | 2019-05-03 11:28 | Hospitalist Progress Note ---
Date of Service May 03, 2019 Assessment & Plan (1) Abnormal MRI of head: T2 signal abnormality in the right occipital lobe on imaging. However DWI was negative for abnormalities ruling out acute stroke. Significance and etiology of this occipital lobe abnormality is uncertain. Oddly he refers his symptoms to the right eye; however the right occipital lobe abnormalities on MRI should lead to left-sided symptoms. [id number] - Discussed the case with Dr Andrews - recommendations - * EEG to r/o seizure activity * Lumbar puncture under fluoro guidance --- obtain CMV, EBV, HSV PCR; cell counts; gram stain/culture (viral and bacterial); cryptococcal ag; etc. * autoimmune w/u including RENNY, RF, etc. Spoke with radiology - they can perform LP in the am. Order placed. (2) Vision disturbance: Stroke ruled out with negative DWI on MRI brain. Had dilated eye exam today by Dr Uribe - this did NOT reveal any abnormalities of the retina (no tears/detachments), optic nerve, etc. Sed rate/crp largely normal making temporal arteritis highly unlikely. Appreciate input by neurology, Dr Andrews. Occipital lobe abnormalities on MRI brain are uncertain. Will have EEG and LP for additional w/u. Discussed all test results to date with patient and his . (3) Headache: Mild; improved. Etiology uncertain. No prior h/o migraine. Headache does not sound migrainous. (4) Benign essential hypertension: Ok to resume amlodipine 5mg daily. (5) Hyperlipidemia: LDL 123; HDL 39. Mild hyperlipidemia. Since stroke has been ruled out will hold statin. Uncertain ongoing statin usage is necessary. (6) Rosacea: Chronic. Stable. Continue doxycycline at home dose of 50mg BID. (7) Leukocytosis: Resolved. CBC today entirely normal. Incidentally on CTA neck there were nonspecific prominent submandibular lymph nodes measuring up to 8 mm on the left as well as mildly prominent left supraclavicular lymph node measuring up to 8 mm. Patient denies constitutional symptoms over the last few months - no weight loss, fevers, sweats, etc. These will need to be followed up clincially. (8) Post-surgical hypothyroidism: h/o thyroid ca. Now on synthroid 200mcg daily. Check TSH am. (9) Prediabetes: a1c 5.9%. Will primary counselor patient about the meaning of this test result prior to d/c. (10) DVT prophylaxis: hold on chemical means due to upcoming LP. ambulation in meantime. Subjective pt continues with floaters but no flashes of light, visual field cuts, or blurry vision. denies any significant headache. recalls having a similar visual disturbance about 1 year ago and also 1 week ago. denies any other neuro symptom - weakness, paresthesias, etc. no prior h/o migraine headache. pt's at bedside; numerous questions answered. tele overnight wnl. Review of Systems Constitutional: no fever and no chills Respiratory: no dyspnea Cardiovascular: no chest pain Gastrointestinal: no abdominal pain Physical Exam Constitutional: well developed and well nourished; no acute distress Eyes: PERRL; no eyelid abnormality, no conjunctival abnormality and no scleral abnormality visual stoner full by direct confrontation; EOMI; no nystagmus ENMT: external ear and nose normal, oropharynx normal Respiratory: normal respiratory effort, lungs clear to auscultation Cardiovascular: RRR, no murmur, no edema Heart Sounds: normal S1 and normal S2 Vessels: posterior tibial pulses present and dorsalis pedis pulses present; no JVD Extremities: no edema Gastrointestinal (Abdomen): normal bowel sounds, soft, nontender, no hepatosplenomegaly Neurologic: deep tendon reflexes 2+ bilaterally and moves all extremities; no focal motor deficits Speech / Cognition: normal speech face symmetric/no droop Psychiatric: Orientation: alert and oriented x 3 Affect: + anxious affect Results & Data Vital Signs (Past 12 Hours) Vital Signs Temp Pulse Pulse Pulse Resp BP BP 05/03/19 08:05 36.5 C 78 18 142/87 H 05/03/19 07:22 65 05/03/19 03:23 36.4 C L 69 19 137/78 05/03/19 00:31 61 Pulse Ox 05/03/19 08:05 98 05/03/19 07:22 05/03/19 03:23 98 05/03/19 00:31 Laboratory Results Laboratory Results - last 24 hr 05/02/19 05/03/19 05/03/19 11:38 05:51 05:51 WBC 9.34 RBC 4.99 Hgb 15.7 Hct 45.8 MCV 91.8 MCH 31.5 MCHC 34.3 RDW Std Deviation 43.5 RDW Coeff of Bang 13.0 Plt Count 312 MPV 9.0 Immature Gran % (Auto) 0.5 Neut % (Auto) 67.3 Lymph % (Auto) 17.6 [place] % (Auto) 11.5 Eos % (Auto) 2.9 Baso % (Auto) 0.2 Immature Gran # (Auto) 0.05 H Neut # (Auto) 6.29 Lymph # (Auto) 1.64 [place] # (Auto) 1.07 H Eos # (Auto) 0.27 Baso # (Auto) 0.02 Estimat Average Glucose 123 Hemoglobin A1c 5.9 H Triglycerides 124 Cholesterol 187 LDL Cholesterol, Calc 123 VLDL Cholesterol, Calc 25 HDL Cholesterol 39 Cholesterol/HDL Ratio 5 Diagnostic Findings MRI brain - IMPRESSION: 1. There is subtle T2 signal abnormality identified involving the right occipital lobe cortex. This is nonspecific, and there is no associated abnormal postcontrast enhancement or restricted diffusion. Differential considerations include a nonspecific cerebritis, PRES (given the distribution), or less likely glioma. Clinical correlation will be required. Short-term MRI follow-up is recommended to document resolution. 2. There is no hemorrhage, mass effect, or evidence of acute ischemia. PG Care Time/CCT Total # of Minutes Spent Total Time Spent with Patient: Total time spent is greater than 50% in coordination of care (as documented) at patient's floor/unit and/or counseling patient: (1) Headache Headache chronicity pattern: unspecified pattern Headache type: unspecified Intractability: not intractable Qualified Code(s): R51 - Headache (2) Hyperlipidemia Hyperlipidemia type: unspecified Qualified Code(s): E78.5 - Hyperlipidemia, unspecified (3) Leukocytosis Leukocytosis type: unspecified Qualified Code(s): D72.829 - Elevated white blood cell count, unspecified
[2019-05-03] MEDS ORDERED: AMLODIPINE BESYLATE 5 MG TAB PO ONE (13:44)
--- NOTE | 2019-05-03 20:23 | Consultation Report ---
DATE OF CONSULTATION: 05/03/2019 REASON FOR CONSULT: Right-sided visual field aberrations. The patient is a 58-year-old white male with a history of hypertension as well as thyroid cancer, status post thyroidectomy, who has had several episodes over the last year of right-sided visual disturbances, most recently 2 nights ago. He states he sees wavy lines in his right peripheral vision, lasting anywhere from a couple of minutes to an entire evening. He had some mild headache associated with the last one. He has no other past ocular history. On examination bedside, his visual acuity near without glasses was 20/50 in each eye. His pupils were equal and reactive to light and accommodation. His visual stoner were grossly intact by confrontation bilaterally. His extraocular movements were intact and normal. On slit lamp examination, he had +1 nuclear sclerosis of his lenses in both eyes. I dilated both eyes with 1% tropicamide at around 5:23 p.m. today and on dilated fundus examination, he has a healthy pink optic disks at 0.3 cups, healthy macula and no evidence of any retinal tear or detachment in either eye. In summary, he had a healthy ocular examination. In reviewing his MRI, he appears to have a report of a right-sided occipital inflammation or enhancement on the T2 imaging. What is odd is right occipital problem would typically affect the left visual field area with left-sided symptoms which he is having right-sided symptoms. I have recommended that he follow up as an outpatient in the office for formal visual field testing and a reexamination. If you have any other questions, do not hesitate to contact me at [phone]. AACK
--- NOTE | 2019-05-03 22:28 | Neurology Progress Note ---
Date of Service May 03, 2019 Assessment & Plan (1) Flashing lights: Richard Angel is a 58-year-old man with past medical history of hypertension, hyperlipidemia, rosacea and history of thyroid cancer status post resection who presents to [facility] after onset of right eye blurry vision and flashes of light associated with a dull headache. #Flashing lights with associated blurry vision and headache: MRI brain notable for T2 hyperintensity in the right occipital lobe without associated diffusion restriction per my read. DDx includes low grade astrocytoma vs atypical PRES or infection. A similar pattern can also be seen rarely in migraine with aura or post-ictally (however, his symptoms of right sided visual disturbances would localize to the left occipital lobe). ESR mildly elevated at 17, no leukocytosis or fever, A1c 5.9 (new diagnosis of prediabetes). He is not hypertensive to a level that would be seen in PRES, nor is he on any medications or have any risk factors for PRES. Positive symptoms with flashing lights could also be c onsistent with occipital lobe seizures. Ophtho evaluation shows no optic disc edema or retinal tear/detachment. - please obtain a lumbar puncture with the following tests: opening pressure, cell counts, glucose, protein, cryptococcal antigen, viral PCRs (EBV, CMV, HSV), cytology, gram stain and culture (bacterial/viral) - please send the following serum studies: RENNY screen, RF, SSA/SSB, Lyme screen, Bartonella - EEG performed, read pending. If epileptiform discharges or seizures, will recommend starting keppra 1500mg bid - he will need repeat MRI brain w/ and w/o contrast in 4-6 weeks to follow up if no infection identified - follow up in neurology clinic after repeat MRI brain (4-6 weeks) We will continue to follow patient closely. Please call with any questions. Subjective NAEs overnight. Went for MRI and EEG. LP pending. Discussed results of MRI with patient and his . He reports having an ongoing mild headache and darkness or shadow in the right side of his visual field. Review of Systems Review of Systems: 14 point review of systems completed and negative except as in HPI. Physical Exam Physical Exam: General Exam: GEN: NAD, sitting in bed. HEENT: No conjunctival injection, no rhinorrhea. CV: RRR, no peripheral edema PULM: Nonlabored respirations on room air. Neuro Exam: MS: Awake and Alert. Oriented to person, place, and date. Speech fluent and appropriate without dysarthria or paraphasic errors. Language intact including naming, comprehension, repetition. Cognition and memory grossly intact. Attention intact. No neglect. CN: Visual stoner full. No extinction to double simultaneous stimuli. No optic disc edema on fundoscopic exam. PERRLA OU, no RAPD noted. EOMI without nystagmus. Facial sensation intact to LT. Facial muscles full and symmetric. Hearing intact to conversation. Uvula midline with symmetric palatal elevation. Shoulder shrug normal. Tongue midline. MOTOR: Normal bulk and tone. No pronator drift. BUE strength 5/5 at deltoids, biceps, triceps, wrist flexors and extensors, and finger flexors bilaterally. BLE strength 5/5 at iliopsoas, hamstrings, quadriceps, tibialis anterior, and gastrocnemius bilaterally. REFLEXES: 2+ at biceps, triceps, brachioradialis, patella and Achilles bilaterally. Flexor plantar responses bilaterally. SENSORY: Intact to LT without extinction to double simultaneous stimuli. Vibration and pinprick intact throughout. COORDINATION: No dysmetria or ataxia on [id number] and lyne-do-sqae bilaterally. Normal Meaghan bilaterally. GAIT: Normal gait and arm swing. Normal Romberg. NIHSS 0 Results & Data Vital Signs (Past 12 Hours) Vital Signs Temp Pulse Pulse Resp BP BP Pulse Ox 05/03/19 19:33 36.6 C 83 18 139/89 96 05/03/19 17:25 91 H 05/03/19 15:29 36.7 C 99 H 20 141/82 H 95 05/03/19 13:22 36.5 C 90 16 149/91 H 97 Laboratory Results 05/03/19 05/03/19 05/02/19 Range/Units 05:51 05:51 11:38 WBC 9.34 (4.8-10.8) K/uL RBC 4.99 (4.7-6.1) M/uL Hgb 15.7 (14.0-18.0) g/dL Hct 45.8 (42-52) % MCV 91.8 (80-100) fL MCH 31.5 (25-34) pg MCHC 34.3 (32-36) g/dL RDW Std Deviation 43.5 (36.4-46.3) fL RDW Coeff of Bang 13.0 (11.5-14.5) % Plt Count 312 (130-400) K/uL MPV 9.0 (7.4-10.4) fL Immature Gran % (Auto) 0.5 % Neut % (Auto) 67.3 % Lymph % (Auto) 17.6 % [place] % (Auto) 11.5 % Eos % (Auto) 2.9 % Baso % (Auto) 0.2 % Immature Gran # (Auto) 0.05 H (0.00-0.02) K/uL Neut # (Auto) 6.29 (1.4-6.5) K/uL Lymph # (Auto) 1.64 (1.2-3.4) K/uL [place] # (Auto) 1.07 H (0.11-0.59) K/uL Eos # (Auto) 0.27 (0-0.5) K/uL Baso # (Auto) 0.02 (0-0.2) K/uL ESR 17 H (0-14) mm/hr Estimat Average Glucose mg/dl Hemoglobin A1c (4.5-5.6) % C-Reactive Protein (0-0.29) mg/dl Triglycerides 124 (0-150) mg/dl Cholesterol 187 (0-200) mg/dl LDL Cholesterol, Calc 123 mg/dl VLDL Cholesterol, Calc 25 mg/dl HDL Cholesterol 39 mg/dl Cholesterol/HDL Ratio 5 05/02/19 05/02/19 Range/Units 11:38 11:38 WBC (4.8-10.8) K/uL RBC (4.7-6.1) M/uL Hgb (14.0-18.0) g/dL Hct (42-52) % MCV (80-100) fL MCH (25-34) pg MCHC (32-36) g/dL RDW Std Deviation (36.4-46.3) fL RDW Coeff of Bang (11.5-14.5) % Plt Count (130-400) K/uL MPV (7.4-10.4) fL Immature Gran % (Auto) % Neut % (Auto) % Lymph % (Auto) % [place] % (Auto) % Eos % (Auto) % Baso % (Auto) % Immature Gran # (Auto) (0.00-0.02) K/uL Neut # (Auto) (1.4-6.5) K/uL Lymph # (Auto) (1.2-3.4) K/uL [place] # (Auto) (0.11-0.59) K/uL Eos # (Auto) (0-0.5) K/uL Baso # (Auto) (0-0.2) K/uL ESR (0-14) mm/hr Estimat Average Glucose 123 mg/dl Hemoglobin A1c 5.9 H (4.5-5.6) % C-Reactive Protein < 0.29 (0-0.29) mg/dl Triglycerides (0-150) mg/dl Cholesterol (0-200) mg/dl LDL Cholesterol, Calc mg/dl VLDL Cholesterol, Calc mg/dl HDL Cholesterol mg/dl Cholesterol/HDL Ratio PG Care Time/CCT Total # of Minutes Spent Total Time Spent with Patient: Total time spent is greater than 50% in coordination of care (as documented) at patient's floor/unit and/or counseling patient:
[2019-05-04] MEDS: LEVOTHYROXINE SODIUM 200 MCG TABLET PO SCH (05:54)
[2019-05-04] MEDS ORDERED: AMLODIPINE BESYLATE 5 MG TAB PO SCH (09:00)
--- NOTE | 2019-05-04 09:27 | Hospitalist Progress Note ---
Date of Service May 04, 2019 Results & Data Vital Signs (Past 12 Hours) Vital Signs Temp Pulse Pulse Resp BP BP Pulse Ox 05/04/19 07:28 36.6 C 77 18 137/82 97 05/04/19 03:28 36.5 C 66 18 136/77 99 05/04/19 01:19 67 05/03/19 23:44 36.4 C L 78 18 129/78 96 PG Care Time/CCT Total # of Minutes Spent Total Time Spent with Patient: Total time spent is greater than 50% in coordination of care (as documented) at patient's floor/unit and/or counseling patient:
[2019-05-04] MEDS: DOXYCYCLINE HYCLATE 50 MG CAP PO SCH (09:56)
[2019-05-04 10:18] LABS: Lyme Ab IgG w/WB Rflx Negative (Negative); Lyme Ab IgM w/WB Rflx Negative (Negative)
--- NOTE | 2019-05-04 11:57 | Fluoroscopy Report ---
FL lumbar puncture diagnostic CLINICAL HISTORY: abnormal MRI brain mental status change FLUOROSCOPY TIME: 20 seconds PROCEDURE: The procedure, risks and benefits were discussed with the patient including the risk of s shila headache, bleeding and infection. The patient agreed to the procedure and informed written cons ent was obtained. The procedure was performed by Dr. Eid following a timeout. The L3-L4 interlamin ar space was targeted. Skin overlying the space was prepped and draped in the usual sterile fashion a nd local anesthesia was achieved with 1% lidocaine. Under intermittent fluoroscopic guidance, a 20-ga uge x 3 1/2 in. Sprotte needle was inserted into the thecal sac. A total of 7cc of clear, colorless c erebral spinal fluid was obtained and spread amongst 4 vials. The patient tolerated the procedure wel l. There were no immediate complications. The specimens were sent to the laboratory at the request of the referring physician. IMPRESSION: Successful fluoroscopic guided lumbar puncture with removal of 7 cc of clear, colorless c erebral spinal fluid. No immediate complications. The above report was generated using voice recognition software. It may contain grammatical, syntax or spelling errors. Electronically signed by: Carson Eid M.D. 05/04/2019 11:55 AM
[2019-05-04 12:05] LABS: Total Protein CSF 65.9 mg/dl (15-45)
[2019-05-04 12:15] LABS: Appearance CSF Clear; CSF Count Tube # 3; CSF Xanthrochromic No xanthochromia; Color CSF Colorless; Red Blood Cell CSF (A) 200 /uL (0-); Red Blood Cell CSF (B) 190 /uL (0-); White Blood Cell CSF (A) 0 /uL (0-5); White Blood Cell CSF (B) 0 /uL (0-5)
--- NOTE | 2019-05-04 16:54 | Discharge Summary ---
Date of Service May 04, 2019 Admission HPI Per Admitting Provider Richard Hyde is a pleasant 58-year-old male with history of hypertension, hyperlipidemia and prior thyroid cancer presenting with right eye visual disturbance. Patient reports approximately 1 year ago while he was in the [employer] hunting he experienced flashing lights in his right eye which lasted approximately 3 minutes. No neurologic deficits or headache at that time. Patient had a recurrence of the visual disturbance last week while at work when he developed flashing lights in his right eye, blurry vision, "wobbly vision" provoked with looking far right or far left and floaters. He reports that the flashing light was present even while closing his eyes. During this time he states that he felt "strange" and "foggy" like he just woke up. This episode lasted longer than the one a year ago and was followed by a dull headache. This morning when the patient woke up he had a dull headache and feeling of pressure in his head. He reports the same flashing light in his right eye, "wobbly" vision provoked with far rightward or leftward gaze and floaters. He denies loss of vision or amaurosis fugax. Denies focal numbness/tingling/weakness. Denies clumsiness of his hands or gait disturbance. Denies difficulty with chewing/swallowing or speaking. Denies pain in the eyes or pain with eye movement but reports that the back of his eyes feel tired. Denies changes in bowels or bladder specifically denies urinary retention, denies back pain or shooting pains. He does not frequently have headaches and has no personal history of migraine. Reports that his vision is overall intact but feels that he may need reading glasses at some point in the near future. Patient additionally denies fever/chills/weight loss/weight gain. Denies hearing loss/tinnitus/vertigo. Denies painful swallowing or difficulty swallowing/abdominal pain/nausea/vomiting/diarrhea/constipation. Denies chest pain/palpitations/shortness of breath/cough/wheeze. No additional complaints at this time. ER course: Aspirin 324 mg p.o. Admission Exam Per Admitting Provider General: patient resting comfortably, NAD, non-toxic in appearance, AA&O x 4 Skin: warm, dry, intact, no rashes or lesions HEENT: NC/AT, PERRL, EOMI, anicteric sclera, conjunctiva without injection, external ear normal to inspection and nontender, nares patent, moist mucus membranes, dentition intact, no oropharyngeal lesions, neck supple, trachea midline, no LAD, no thyromegaly, no JVD Heart: +S1/S2, regular, no m/r/g Lungs: equal air entry bilaterally, no rales/rhonchi/wheezes Abd: +BS, soft, NT/ND, no masses/organomegaly/ascites Ext: warm, 2+ pulses in UE/LE bilaterally, no clubbing/cyanosis or edema Neuro: Patient awake alert and oriented x4, speech fluent and appropriate, no facial droop, cranial nerves II through XII grossly intact. Evoked flashing light in the right peripheral visual field with far rightward gaze. No nystagmus. Sensation to light touch intact. Muscle strength 5 out of 5 in upper and lower extremities bilaterally. Coordination by [id number] and mdrp-yh-iijn intact bilaterally. Gait normal. Principal Diagnosis FLashing lights with associated blurry vision and headache Discharge Exam Constitutional: well developed and well nourished; no acute distress Eyes: PERRL; no eyelid abnormality, no conjunctival abnormality and no scleral abnormality visual stoner full by direct confrontation; EOMI; no nystagmus ENMT: external ear and nose normal, oropharynx normal Respiratory: normal respiratory effort, lungs clear to auscultation Cardiovascular: RRR, no murmur, no edema Heart Sounds: normal S1 and normal S2 Vessels: posterior tibial pulses present and dorsalis pedis pulses present; no JVD Extremities: no edema Gastrointestinal (Abdomen): normal bowel sounds, soft, nontender, no hepatosplenomegaly Neurologic: deep tendon reflexes 2+ bilaterally and moves all extremities; no focal motor deficits Speech / Cognition: normal speech face symmetric/no droop Psychiatric: Orientation: alert and oriented x 3 Affect: + anxious affect Discharge Data Allergies Allergy/AdvReac Type Severity Reaction Status Date / Time No Known Allergies Allergy Unverified 05/02/19 13:18 Consultations 05/02/19 13:42 ED Decision to Admit Stat 05/02/19 15:40 Consult Neurology Routine Consult Ophthalmology Routine Ordered Studies 05/02/19 11:42 CT angio head wo/w Stat CT angio neck with con Stat 05/02/19 15:40 MR brain wo/w con Routine IMPRESSION: 1. There is subtle T2 signal abnormality identified involving the right occipital lobe cortex. This is nonspecific, and there is no associated abnormal postcontrast enhancement or restricted diffusion. Differential considerations include a nonspecific cerebritis, PRES (given the distribution), or less likely glioma. Clinical correlation will be required. Short-term MRI follow-up is recommended to document resolution. 2. There is no hemorrhage, mass effect, or evidence of acute ischemia. 05/04/19 11:00 FL lumbar puncture diagnostic Routine 05/03/19 ECHO EEG Hospital Course (1) Abnormal MRI of head: T2 signal abnormality in the right occipital lobe on imaging. Oddly, symptoms to right eye despite findings in right occipital lobe instead of left. However DWI was negative for abnormalities ruling out acute stroke. Significance and etiology of this occipital lobe abnormality is uncertain. EEG performed to r/o seizure activity. Lumbar puncture with CMV, EBV, HSV PCR, cell counts, gram stain/cx, crytococcal ag, RENNY, EF, anti Ro/La. Need repeat MRI brain w/w/o in 4-6 weeks to follow up if no infectious causes found. Will need follow-up in neuro clinic after repeat imaging. (2) Vision disturbance: Stroke ruled out with negative DWI on MRI brain. Dilated eye exam by Dr Uribe which did NOT reveal any abnormalities of the retina (no tears/detachments), optic nerve, etc. --> Sed rate/crp largely normal making temporal arteritis highly unlikely. (3) Headache: Improved prior to discharge. Etiology uncertain as patient without history of migraine. (4) Benign essential hypertension: Continue amlodipine 5mg daily. (5) Hyperlipidemia: LDL 123; HDL 39. Mild hyperlipidemia. Since stroke has been ruled out, further statin therapy held at this time. (6) Rosacea: Chronic. Stable. Continue doxycycline at home dose of 50mg BID. (7) Leukocytosis: Resolved. Incidentally on CTA neck there were nonspecific prominent submandibular lymph nodes measuring up to 8 mm on the left as well as mildly prominent left supraclavicular lymph node measuring up to 8 mm. Patient denied constitutional symptoms over the last few months - no weight loss, fevers, sweats, etc. (8) Post-surgical hypothyroidism: h/o thyroid ca. On synthroid 200mcg daily, and TSH leveled continued to be elevated as when he was decreased from the almost double dosing. Levothyroxine dosing decreased to 175mcg at discharge. Will need repeat TFT in 4-6 weeks. (9) Prediabetes: a1c 5.9%. 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 (10) DVT prophylaxis: Ambulation Total Time Total Time Spent Total Time Spent (In Minutes): 45 Discharge Plan Discharge Items Patient Disposition: Home - Self-Care Reason For Visit: VISUAL DISTURBANCE Discharge Diagnosis: Visual Disturbance with associated flashing lights Goals: You have been hospitalized for an acute medical problem. During your stay at [facility], we have made an effort to correct the problem that brought you to the hospital while keeping you as comfortable as possible. Medications were used to bring your condition under control and your discharge instructions will include directions for any medications you should take after leaving the hospital. Please make sure you see your Primary Care Provider as part of your follow up plan. Activity: Resume your previous activity Non-emergency contact: Primary Care Provider Call non-emergency contact if: you have any medication questions Follow-up/Referrals: José Miguel Mclean III, CRNP [Primary Care Provider] - Diet: Carb Consistent or DM2 and Heart Healthy Addtl Attending Provider Instructions: You have been evaluated for visual disturbances. Acute stroke work-up was negative, however it is recommended that you have a repeat MRI brain in 4-6 weeks if no infection is identified. After repeat imaging, you should follow up with Dr. Andrews from Neurology. Her office number is [phone]. You have been given a copy of your medical record during this hospitalization as discussed. There have been several lab tests that have been sent out. These may take days to weeks to results, and will be sent to your primary care provider as well as neurology. During your admission, your thyroid hormone was found to be very low. For this reason, it is recommended that your levothyroxine is DECREASED to 175mcg and you have repeat lab testing in 6-8 weeks to determine if your dose needs to be lowered further. 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 Your hemoglobin A1c was also found to be elevated at 5.9. This lab is a measurement of the average blood sugar reading over the past three months. According to guidelines, this is considered pre-diabetes. Diet and exercise are recommended, as well as limiting sweets. You should discuss this with your primary care provider and repeat this level in three months to see if you may need further treatment in the future. Call your primary care provider with all non-emergent needs. Report to the closest emergency room if you develop sudden worsening of symptoms, visual changes or for any symptoms that are concerning for you. It has been a pleasure taking part in your care while hospitalized. Thank you very much! Take care! Pending Studies at Discharge: Yes Studies:: Bartonella, CMV, EBV, Herpes Virus, Viral Culture Autoimmune testing: Rheumatoid Factor, RENNY, SS-A/Ro Antibody, SS-B/La Antibody Stand-Alone Forms: My [facility] Medications and DC Order Prescriptions: New levothyroxine 175 mcg tablet 175 mcg PO DAILY 30 Days Qty: 30 RF: 2 Continued doxycycline hyclate 50 mg capsule 50 mg PO BID Qty: 180 RF: 1 amlodipine 5 mg tablet 5 mg PO QAM RF: 0 Discontinued levothyroxine [Synthroid] 200 mcg tablet 200 mcg PO QAM RF: 0 Discharge Orders: Discharge Order (Routine); Ordered 05/04/19 Ordered By: Dary Farias Admission Data Admit Date/Time: 05/02/19 14:27 Attending Provider: Yusef Alvarado Admit Provider: Lauren Ferreira Primary Care Provider: José Miguel Mclean III Other Providers: Philomena Andrews ; Too Uribe Other Interventions: Discharge Summary Assessment (RN) Last Done: 05/04/19 17:10 DC Date/Time DO NOT enter until pt leaves facility: 05/04/19 17:38 Supervising Physician Co-Signing Physician Notes Attending Attestation and Discharge Note: Pt seen/examined, chart reviewed, discharge care plan d/w DAVID Farias. I agree w/ the silvestre components of her discharge documentation. 58yo male with history of HTN who presented with mild headache and visual disturbance. Had extensive w/u for such including MRI brain, EEG, neurology consultation, ophthamology consultation, LP, etc. All w/u was negative except for MRI brain showing right-sided occipital lobe T2 signal abnormality. The exact cause of the MRI findings was uncertain. Additionally, it was odd that his visual complaints were right-eye in origin and the MRI findings were also right-sided (right brain findings should cause left- sided symptoms). CSF was normal on LP, but to be complete a large w/u including viral culture, viral DNA for EBV, and several other tests were sent from the CSF. These were pending at d/c. Rheum w/u was also sent and was pending at discharge. Eye exam by ophthamology was normal. Discharge exam: gen - NAD eyes - PERRL, conjunctiva nl, EOMI, no nystagmus, visual stoner full by direct confrontation heart - RRR, s1 s2 lungs - CTA b/l ext - no edema neuro - strength 5/5 x 4 exts See Ms Jarrett's note regarding management of hypothyroidism. Yusef Alvarado MD
--- NOTE | 2019-05-04 18:25 | Neurology Progress Note ---
Date of Service May 04, 2019 Assessment & Plan (1) Flashing lights: Richard Angel is a 58-year-old man with past medical history of hypertension, hyperlipidemia, rosacea and history of thyroid cancer status post resection who presents to [facility] after onset of right eye blurry vision and flashes of light associated with a dull headache. #Flashing lights with associated blurry vision and headache: MRI brain notable for T2 hyperintensity in the right occipital lobe without associated diffusion restriction per my read. DDx includes low grade astrocytoma vs atypical PRES. A similar pattern can also be seen rarely in migraine with aura or post-ictally (however, his symptoms of right sided visual disturbances would localize to the left occipital lobe). ESR mildly elevated at 17, no leukocytosis or fever, A1c 5.9 (new diagnosis of prediabetes). He is not hypertensive to a level that would be seen in PRES, nor is he on any medications or have any risk factors for PRES. Positive symptoms with flashing lights could also be consistent with occipital lobe seizures. Ophtho evaluation shows no optic disc edema or retinal tear/detachment. Workup so far: CSF showed 0 WBCs, 200 RBCs, 57 glucose, 65.9 protein (mildly elevated, upper limit is 45, could be in setting of preDM and HTN). Crypto Ag negative. No organisms on gram stain. Lyme negative EEG: normal awake EEG Pending workup on discharge: - CSF studies: viral PCRs (EBV, CMV, HSV), cytology, and culture (bacterial/viral) - please send the following serum studies: RENNY screen, RF, SSA/SSB, Bartonella Follow up plan: - he will need repeat MRI brain w/ and w/o contrast in 4 weeks. If abnormality still seen, will refer to neuro-oncology at [facility] or [facility] (patient's choice) for possible tumor and further workup. - follow up in neurology clinic after repeat MRI brain (4-6 weeks) Subjective NAEs overnight. Reports ongoing flashes of light in his vision intermittently. Headache has mostly resolved. Review of Systems Review of Systems: 14 point review of systems completed and negative except as in HPI. Physical Exam Physical Exam: General Exam: GEN: NAD, sitting in bed. HEENT: No conjunctival injection, no rhinorrhea. CV: RRR, no peripheral edema PULM: Nonlabored respirations on room air. Neuro Exam: MS: Awake and Alert. Oriented to person, place, and date. Speech fluent and appropriate without dysarthria or paraphasic errors. Language intact including naming, comprehension, repetition. Cognition and memory grossly intact. Attention intact. No neglect. CN: Visual stoner full. No extinction to double simultaneous stimuli. No optic disc edema on fundoscopic exam. PERRLA OU, no RAPD noted. EOMI without nystagmus. Facial sensation intact to LT. Facial muscles full and symmetric. Hearing intact to conversation. Uvula midline with symmetric palatal elevation. Shoulder shrug normal. Tongue midline. MOTOR: Normal bulk and tone. No pronator drift. BUE strength 5/5 at deltoids, biceps, triceps, wrist flexors and extensors, and finger flexors bilaterally. BLE strength 5/5 at iliopsoas, hamstrings, quadriceps, tibialis anterior, and gastrocnemius bilaterally. REFLEXES: 2+ at biceps, triceps, brachioradialis, patella and Achilles bilaterally. Flexor plantar responses bilaterally. SENSORY: Intact to LT without extinction to double simultaneous stimuli. Vibration and pinprick intact throughout. COORDINATION: No dysmetria or ataxia on [id number] and [id number] bilaterally. Normal Meaghan bilaterally. GAIT: Normal gait and arm swing. Normal Romberg. Results & Data Vital Signs (Past 12 Hours) Vital Signs Temp Pulse Pulse Pulse Resp BP BP 05/04/19 17:10 36.8 C 69 90 20 159/88 H 148/90 H 05/04/19 17:07 36.8 C 90 20 148/90 H 05/04/19 15:11 36.7 C 94 H 16 159/88 H 05/04/19 11:59 36.5 C 68 18 137/77 05/04/19 09:54 120/72 05/04/19 08:00 71 05/04/19 07:28 36.6 C 77 18 137/82 Pulse Ox 05/04/19 17:10 96 05/04/19 17:07 96 05/04/19 15:11 96 05/04/19 11:59 99 05/04/19 09:54 05/04/19 08:00 05/04/19 07:28 97 Laboratory Results 05/04/19 05/04/19 05/04/19 Range/Units 11:25 11:25 11:25 TSH (0.300-4.500) uIu/ml Free T4 (0.8-1.6) ng/dl CSF Appearance Clear CSF Color Colorless Xanthrochromic No xanthochromia CSF WBC 0 (0-5) /uL CSF RBC 200 (0-) /uL CSF Cell Count Tube # 3 CSF Chemistry Tube # CSF Glucose (40-70) mg/dl CSF Total Protein (15-45) mg/dl Rheumatoid Factor RENNY Screen SS-A/Ro Antibody SS-B/La Antibody Bartonella henselae IgG Bartonella henselae IgM Bartonella rogel IgG Bartonella rogel IgM Lyme Disease IgG Ab (Negative) Lyme Disease IgM Ab (Negative) CMV Specimen Source Pending CMV Qnt PCR IU/mL Pending CMV Qnt PCR log IU/mL Pending EBV Source Pending EBV DNA, Quant Pending EBV DNA (PCR) Pending Herpes Virus Source HSV I DNA PCR HSV II DNA PCR Herpesvirus 6 Source HHV-6 DNA (PCR) Viral Specimen Source Pending Virus Culture Pending 05/04/19 05/04/19 05/04/19 Range/Units :22 05: 05:33 TSH (0.300-4.500) uIu/ml Free T4 1.65 H (0.8-1.6) ng/dl CSF Appearance CSF Color Xanthrochromic CSF WBC (0-5) /uL CSF RBC (0-) /uL CSF Cell Count Tube # CSF Chemistry Tube # 1 CSF Glucose 57 (40-70) mg/dl CSF Total Protein 65.9 H (15-45) mg/dl Rheumatoid Factor RENNY Screen SS-A/Ro Antibody SS-B/La Antibody Bartonella henselae IgG Bartonella henselae IgM Bartonella rogel IgG Bartonella rogel IgM Lyme Disease IgG Ab (Negative) Lyme Disease IgM Ab (Negative) CMV Specimen Source CMV Qnt PCR IU/mL CMV Qnt PCR log IU/mL EBV Source EBV DNA, Quant EBV DNA (PCR) Herpes Virus Source Pending HSV I DNA PCR Pending HSV II DNA PCR Pending Herpesvirus 6 Source HHV-6 DNA (PCR) Viral Specimen Source Virus Culture 05/04/19 05/04/19 05/04/19 Range/Units 05:33 05:33 05:33 TSH 0.005 L (0.300-4.500) uIu/ml Free T4 (0.8-1.6) ng/dl CSF Appearance CSF Color Xanthrochromic CSF WBC (0-5) /uL CSF RBC (0-) /uL CSF Cell Count Tube # CSF Chemistry Tube # CSF Glucose (40-70) mg/dl CSF Total Protein (15-45) mg/dl Rheumatoid Factor Pending RENNY Screen Pending SS-A/Ro Antibody Pending SS-B/La Antibody Pending Bartonella henselae IgG Pending Bartonella henselae IgM Pending Bartonella rogel IgG Pending Bartonella rogel IgM Pending Lyme Disease IgG Ab Negative (Negative) Lyme Disease IgM Ab Negative (Negative) CMV Specimen Source CMV Qnt PCR IU/mL CMV Qnt PCR log IU/mL EBV Source Cancelled EBV DNA, Quant Cancelled EBV DNA (PCR) Cancelled Herpes Virus Source HSV I DNA PCR HSV II DNA PCR Herpesvirus 6 Source Pending HHV-6 DNA (PCR) Pending Viral Specimen Source Virus Culture PG Care Time/CCT Total # of Minutes Spent Total Time Spent with Patient: Total time spent is greater than 50% in coordination of care (as documented) at patient's floor/unit and/or counseling patient:
--- NOTE | 2019-05-04 18:33 | Electroencephalogram ---
EEG Procedure Note Date of Service May 04, 2019 Start / End Times Start Time: 12:40pm End Time: 1:02pm Referring Physician Philomena Andrews History 58 yo man with intermittent episodes of visual swirling/bright lights a/w a dark spot in his right side of his visual field and dull headache. Home Medication List Home Medications Medication Instructions Recorded Confirmed Type doxycycline hyclate 50 mg capsule 50 mg PO BID #180 cap 04/19/19 05/02/19 Rx amlodipine 5 mg PO QA 05/02/19 05/02/19 History levothyroxine 175 mcg PO DAILY 30 Days #30 tab 05/04/19 Rx Inpatient Medication List Discontinued Medications Amlodipine Besylate (Norvasc) 5 mg PO NOW ONE Stop: 05/03/19 13:45 Last Admin: 05/03/19 14:31 Dose: 5 mg Documented by: [id number] Amlodipine Besylate (Norvasc) 5 mg PO QAMUSCOGEE Stop: 06/03/19 08:59 Last Admin: 05/04/19 09:56 Dose: 5 mg Documented by: [id number] Aspirin (Aspirin) 324 mg PO NOW STA Stop: 05/02/19 13:09 Last Admin: 05/02/19 13:18 Dose: 324 mg Documented by: [id number] Aspirin (Ecotrin Ectab) 81 mg PO [facility] Stop: 06/02/19 08:59 Last Admin: 05/03/19 07:59 Dose: 81 mg Documented by: [id number] Atorvastatin Calcium (Lipitor) 20 mg PO QAMUSCOGEE Stop: 06/02/19 08:59 Last Admin: 05/03/19 07:59 Dose: 20 mg Documented by: [id number] Doxycycline Hyclate (Vibramycin) 50 mg PO BID [facility] Stop: 05/12/19 20:59 Last Admin: 05/04/19 09:56 Dose: 50 mg Documented by: [id number] Admin: 05/03/19 20:28 Dose: Not Given Documented by: [id number] Admin: 05/03/19 07:59 Dose: 50 mg Documented by: [id number] Admin: 05/02/19 20:39 Dose: Not Given Documented by: [id number] Gadobutrol (Gadavist 65ml) 10 ml IV ONCE PRN PRN Reason: Interaction Checking Stop: 05/06/19 19:49 Last Admin: 05/02/19 19:50 Dose: 10 ml Documented by: [id number] Acetaminophen (Ofirmev) 1,000 mg in 100 mls @ 400 mls/hr IV NOW STA Stop: 05/02/19 11:56 Last Infusion: 05/02/19 12:05 Dose: 0 mls/hr Documented by: [id number] Admin: 05/02/19 11:50 Dose: 400 mls/hr Documented by: [id number] Ioversol (Optiray 320 125ml) 119 ml IV ONCE PRN PRN Reason: Interaction Checking Stop: 05/06/19 12:32 Last Admin: 05/02/19 12:33 Dose: 119 ml Documented by: [id number] Levothyroxine Sodium (Synthroid) 200 mcg PO DAILYBB GRACE Stop: 06/02/19 06:29 Last Admin: 05/04/19 05:54 Dose: 200 mcg Documented by: [id number] Admin: 05/03/19 06:00 Dose: 200 mcg Documented by: [id number] Description This is a 21 electrode EEG with a single channel dedicated to limited EKG. The electrodes were placed in accordance with the International 10-20 system. History: 58 yo man with PMH of HTN and rosacea who presented with intermittent episodes of bright lights swirling in vision and dark spot in right side of visual field a/w dull headache. Rx: none Attending reading: Philomena Andrews EEG Description: EEG background: Background was low voltage with predominantly alpha frequencies. A well formed posterior dominant rhythm of 10-11 Hz was observed. The EEG is continuous. There is variability and reactivity present. Activation and reactivity: Photic stimulation performed without any abnormalities noted. No photic driving observed. Hyperventilation was not performed. Sleep: Patient was not drowsy and did not enter higher levels of sleep during this recording. No sleep architecture recorded. Epileptiform discharges: No epileptiform discharges were observed. Rhythmic and periodic patterns: None Seizures: None Impression: This was a normal EEG. No seizures or epileptiform discharges were seen. [facility] EEG Procedure Codes Indication for Procedure (1) Flashing lights:
[2019-05-06 11:52] LABS: CMV DNA Qnt Real Time PCR <200 IU/mL (<200); CMV DNA Quant PCR <2.30 log IU/mL (<2.30)
[2019-05-06 13:58] LABS: HSV Type 1 DNA Not Detected (Not Detected); HSV Type 1&2 DNA Source CSF; HSV Type 2 DNA Not Detected (Not Detected)
[2019-05-10 10:09] LABS: Anti Nuclear Antibody Screen NEGATIVE (NEGATIVE); Anti-SS-A <1.0 NEG AI (<1.0 NEG); Anti-SS-B <1.0 NEG AI (<1.0 NEG); Bartonella henselae IgG Negative; Bartonella henselae IgM Ab Negative; Bartonella quintana IgG Ab Negative; Bartonella quintana IgM Ab Negative; Herpes Virus 6 (DNA) Not Detected (Not Detected); Herpes Virus 6 (DNA) Source Plasma; Rheumatoid Factor < 14 IU/ML (<14)
[2019-05-20 17:10] LABS: EBV DNA Quant PCR <200 copies/mL (<200); EBV DNA Quant Source CSF; Source CSF
== END 2019-05-04 17:38 | disposition home or self-care (01) | DRG 125 ==
LOC: ED 11:13 → 2N 14:27 → SUATTDRO 14:27 → 2N 15:03